=== PATIENT | male | born 1965 | race Caucasian/White ===

== ENCOUNTER → 2024-02-20 16:15 | Outpatient (REF) | payer MEDICARE, SELFPAY | LOC: RAD 16:15 | PROVIDERS: ATTENDING PHYSICIAN Internal Medicine Critical Care Medicine; FAMILY PHYSICIAN Family Medicine | DX: F17.210 Nicotine dependence, cigarettes, uncomplicated (principal) | CPT/HCPCS: 71271 ==

== ENCOUNTER → 2024-04-29 11:06 | Outpatient (REF) | payer MEDICARE, SELFPAY | LOC: RAD 11:06 | PROVIDERS: ATTENDING PHYSICIAN Family Medicine | DX: R10.13 Epigastric pain (principal); R63.4 Abnormal weight loss | CPT/HCPCS: 74177; Q9967 ==

== ENCOUNTER 2024-05-22 14:33 | Outpatient (RCR) | payer MEDICARE, SELFPAY | END 2024-05-22 23:59 | disposition home or self-care (01) | LOC: RST 14:33 | PROVIDERS: ATTENDING PHYSICIAN Psychiatry & Neurology Neurology; FAMILY PHYSICIAN Family Medicine | DX: R41.89 Other symptoms and signs involving cognitive functions and awareness (principal); R41.3 Other amnesia; I69.118 Other symptoms and signs involving cognitive functions following nontraumatic intracerebral hemorrhage; I69.114 Frontal lobe and executive function deficit following nontraumatic intracerebral hemorrhage; I69.111 Memory deficit following nontraumatic intracerebral hemorrhage | CPT/HCPCS: 96125; 97129; 97130 ==

== ENCOUNTER 2024-06-23 11:41 | Outpatient (RCR) | payer MEDICARE, SELFPAY | END 2024-06-23 23:59 | disposition home or self-care (01) | LOC: ROT 11:41 | PROVIDERS: ATTENDING PHYSICIAN Psychiatry & Neurology Neurology; FAMILY PHYSICIAN Family Medicine | DX: R41.89 Other symptoms and signs involving cognitive functions and awareness (principal); R41.3 Other amnesia; R41.841 Cognitive communication deficit; I69.118 Other symptoms and signs involving cognitive functions following nontraumatic intracerebral hemorrhage; I69.114 Frontal lobe and executive function deficit following nontraumatic intracerebral hemorrhage; R41.844 Frontal lobe and executive function deficit; I61.5 Nontraumatic intracerebral hemorrhage, intraventricular; I69.111 Memory deficit following nontraumatic intracerebral hemorrhage | CPT/HCPCS: 97129; 97130 ==

== ENCOUNTER 2024-07-14 13:53 | Outpatient (RCR) | payer MEDICARE, SELFPAY | END 2024-07-14 23:59 | disposition home or self-care (01) | LOC: ROT 13:53 | PROVIDERS: ATTENDING PHYSICIAN Psychiatry & Neurology Neurology; FAMILY PHYSICIAN Family Medicine | DX: R41.89 Other symptoms and signs involving cognitive functions and awareness (principal); R41.3 Other amnesia; R41.841 Cognitive communication deficit; R41.844 Frontal lobe and executive function deficit; I61.5 Nontraumatic intracerebral hemorrhage, intraventricular; I69.118 Other symptoms and signs involving cognitive functions following nontraumatic intracerebral hemorrhage; I69.114 Frontal lobe and executive function deficit following nontraumatic intracerebral hemorrhage; I69.111 Memory deficit following nontraumatic intracerebral hemorrhage | CPT/HCPCS: 97129; 97130 ==

== ENCOUNTER 2024-07-29 13:01 | Outpatient (RCR) | payer MEDICARE, SELFPAY | END 2024-07-29 23:59 | disposition home or self-care (01) | LOC: ROT 13:01 | PROVIDERS: ATTENDING PHYSICIAN Psychiatry & Neurology Neurology; FAMILY PHYSICIAN Family Medicine | DX: R41.89 Other symptoms and signs involving cognitive functions and awareness; R41.3 Other amnesia; I69.311 Memory deficit following cerebral infarction; R41.841 Cognitive communication deficit; R41.844 Frontal lobe and executive function deficit; I69.314 Frontal lobe and executive function deficit following cerebral infarction; I61.5 Nontraumatic intracerebral hemorrhage, intraventricular; I69.118 Other symptoms and signs involving cognitive functions following nontraumatic intracerebral hemorrhage; I69.114 Frontal lobe and executive function deficit following nontraumatic intracerebral hemorrhage; I69.111 Memory deficit following nontraumatic intracerebral hemorrhage | CPT/HCPCS: 97129; 97130 ==

== ENCOUNTER → 2024-11-04 16:21 | Outpatient (REF) | payer MEDICARE, SELFPAY | LOC: DHSLP 16:21 | PROVIDERS: ATTENDING PHYSICIAN Family Medicine; FAMILY PHYSICIAN Family Medicine | DX: G47.19 Other hypersomnia (principal); R06.83 Snoring; R09.02 Hypoxemia | CPT/HCPCS: 95810 ==

== ENCOUNTER 2025-01-12 11:59 | Emergency (ER) | payer MEDICARE, SELFPAY ==
[2025-01-12 12:00] VITALS: BP 181/100
[2025-01-12 12:40] LABS: % Basophils 0.4 % (0-2); % Eosinophils 0.1 % (0-6); % Immature Granulocytes 0.4 % (0-0.5); % Lymphocytes 9.7 % (20.5-51.1); % Monocytes 4.5 % (1.7-9.3); % Neutrophils 84.9 % (42.2-75.2); Absolute Basophils 0.1 10^3/uL (0-0.2); Absolute Immature Granulocytes 0.1 10^3/uL (0-0.05); Absolute Lymphocytes 1.4 10^3/uL (1.2-3.4); Absolute Monocytes 0.6 10^3/uL (0.1-0.6); Hematocrit 51.7 % (39.0-52.0); Hemoglobin 16.8 g/dL (13.0-18.0); Mean Corp Hgb Conc. 32.5 g/dL (33.0-37.0); Mean Corpuscular Hgb 28.7 pg (27.0-31.0); Mean Corpuscular Volume 88.2 fL (80.0-94.0); Mean Platelet Volume 9.9 fL (7.4-10.4); Nucleated Red Blood Cells % 0 % (-); Platelet Count 232 10^3/uL (130-400); Red Blood Cell Count 5.86 10^6/uL (4.70-6.10); Red Cell Dist. Width 15.8 % (11.5-14.5); White Blood Cell Count 14.1 10^3/uL (4.8-10.8)
[2025-01-12 12:45] LABS: ALT (SGPT) 19 U/L (0-50); AST (SGOT) 24 U/L (17-59); Albumin 4.6 g/dl (3.5-5.0); Alkaline Phosphatase 134 U/L (38-126); Blood Urea Nitrogen 27 mg/dl (9-20); Calcium 9.6 mg/dl (8.4-10.2); Carbon Dioxide 21 mmol/L (22-30); Chloride 106 mmol/L (98-107); Glucose 218 mg/dl (70-99); Lipase 317 U/L (23-300); Potassium 4.4 mmol/L (3.5-5.1); Sodium 139 mmol/L (135-145); Total Protein 7.6 g/dl (6.3-8.2); eGFR > 60.00
[2025-01-12 13:02] LABS: Troponin I < 0.012 ng/ml
[2025-01-12] MEDS: ZOFRAN 4 MG IV (14:02)
[2025-01-12] MEDS: NSS 1000 IV (14:02)
[2025-01-12] MEDS: DILAUDID 0.5 MG IV (14:02)
[2025-01-12 14:05] VITALS: BMI 28.5
[2025-01-12 14:06] VITALS: BP 175/89
--- NOTE | 2025-01-12 14:06 | ED.GENMED ---
History of Present Illness
<Dee Webster NP - Last Filed: 01/15/25 22:33>
General
Chief Complaint: Abdominal Symptoms
Source: patient
Exam Limitations: none
Time Seen by Provider: 01/12/25 13:38
Nursing documentation reviewed up to this point in time: agreed with
History of Present Illness
History of Present Illness:
Patient to ED iwth complaint of abdominal pain, n/v. Symptoms started 2 days ago. states symptoms lasted for 24 hours and then resolved but returned again this AM. Denies fever/chills. COmplains of left sided abd pain that radiates to
umbilicus. BRought to ED by spouse for eval
Past History
<Dee Webster NP - Last Filed: 01/15/25 22:33>
Past History
ED Past Medical History: CAD, HTN, Hypercholesterolemia, IDDM and Other (ICH)
ED Past Surgical History: Cardiac
Social History
Tobacco: Smoker
Alcohol: None
Drug: None
Personal: Partner
Living: with family
Family History
Family History: Unable to obtain
Review of Systems
<Dee Webster NP - Last Filed: 01/15/25 22:33>
Review of Systems
Allergies reviewed?: Yes
All Other Systems: ROS reviewed and negative except as documented in HPI and ROS
Constitutional: Reports fatigue
EENT: Reports no symptoms
Respiratory: Reports no symptoms
Cardiac: Reports no symptoms
ABD/GI: Reports abdominal pain, nausea and vomiting
: Reports no symptoms
Musculoskeletal: Reports no symptoms
Skin: Reports no symptoms
Neurological: Reports no symptoms
Psychiatric: Reports no symptoms
Phy Exam
<Dee Webster WINDOWS SYSTEM ADMIN - Last Filed: 01/15/25 22:33>
General Physical Exam
General Presentation: moderate distress
General age: appears stated age
General Skin: warm and dry
General Habitus: normal
General Mental: alert
Cardiovascular Exam
Cardiovascular Exam: regular rate/rhythm and no edema
Pulmonary Exam
Pulmonary Exam: lungs clear and no respiratory distress
Gastrointestinal Exam
Gastrointestinal Exam: normal bowel sounds, soft, no organomegaly, non distended and no cva tenderness
Palpation: left upper quadrant: No tenderness, left lower quadrant: Moderate tenderness, right upper quadrant: No tenderness and right lower quadrant: No tenderness
Musculoskeletal Exam
Musculoskeletal Exam: full ROM and neuro vasc intact
Skin Exam
Skin Exam: normal color, warm/dry and no rash
Psychiatric Exam
Psychiatric Exam: normal mood/affect
Course
<Dee Webster, WINDOWS SYSTEM ADMIN - Last Filed: 01/15/25 22:33>
Orders/Labs/Results
Orders:
Orders
01/12/25 12:05
Electrocardiogram (*1) Urgent
Reason for Study: Chest Pain
01/12/25 12:06
EKG- Treatment ONCE
01/12/25 12:14
Complete Blood Count/With Diff Urgent
Comprehensive Metabolic Panel Urgent
Lipase Urgent
Troponin I Urgent
01/12/25 13:44
0.9% Sodium Chloride 1000 ml [Nss] 1,000 ml IV BOLUS
HYDROmorphone [Dilaudid] 0.5 mg IV NOW STA
Ondansetron Injectable [Zofran] 4 mg IV NOW STA
01/12/25 13:45
CT Abd/pelvis W Iv Cont Urgent
Comment:
Reason For Exam: left abd pain, vomiting,unable to tolerate po
01/12/25 16:11
COVID-19 Antigen Urgent
Source: Nasal Swab
Influenza A+B Rapid Molecular Urgent
FLORY Source: Nasal Swab
Specimen Description:
02/17/25 16:16
Urinalysis Reflex To Culture Urgent
Date Specimen was Collected: 01/12/25
Time Specimen was Collected: 16:13
Urine Microscopic Reflex Cult Urgent
Urine Culture Urgent
FLORY Source: U
Specimen Description:
Date Specimen was Collected: 01/12/25
Time Specimen was Collected: 16:13
01/12/25 17:08
Sulfamethox./Trimethoprim Ds [Bactrim Ds 800 mg/160 mg] 1 tablet PO NOW STA
Abnormal Lab Results
01/12/25 01/12/25
12:14 16:16
WBC 14.1 H 10^3/uL
(4.8-10.8)
MCHC 32.5 L g/dL
(33.0-37.0)
RDW 15.8 H %
(11.5-14.5)
Abs Immat Gran (auto) 0.1 H 10^3/uL
(0-0.05)
Absolute Neuts (auto) 12.0 H 10^3/uL
(1.4-6.5)
Neutrophils % 84.9 H %
(42.2-75.2)
Lymphocytes % 9.7 L %
(20.5-51.1)
Carbon Dioxide 21 L mmol/L
(22-30)
BUN 27 H mg/dl
(9-20)
Glucose 218 H mg/dl
(70-99)
Alkaline Phosphatase 134 H U/L
(38-126)
Lipase 317 H U/L
(23-300)
Urine Ketones 3+ A
(Negative)
Ur Occult Blood Reflex 3+ A
(Negative)
Urine Nitrite (Reflex) Positive A
(Negative)
Leukocyte Esterase Rfl 2+ A
(Negative)
Urine WBC (Reflex) 21-25 A /HPF
(0-5)
Urine Bacteria (Reflex) Many A
(Negative)
Urine Albumin (Reflex) 2+ A
(Neg - Trace)
01/12/25 12:14
01/12/25 12:14
Vital Signs
Initial and Last Documented VS:
Initial Vital Signs
Temp Pulse Resp BP Pulse Ox
97.5 F 108 18 181/100 98
01/12/25 12:00 01/12/25 12:00 01/12/25 12:00 01/12/25 12:00 01/12/25 12:00
Last Documented Vital Signs
Temp Pulse Resp BP Pulse Ox
97.5 F 91 17 175/89 93
01/12/25 12:00 01/12/25 17:46 01/12/25 14:06 01/12/25 14:06 01/12/25 17:46
<Brandee Abel PA-C - Last Filed: 01/15/25 07:27>
Orders/Labs/Results
Orders:
Orders
01/12/25 12:05
Electrocardiogram (*1) Urgent
Reason for Study: Chest Pain
01/12/25 12:06
EKG- Treatment ONCE
01/12/25 12:14
Complete Blood Count/With Diff Urgent
Comprehensive Metabolic Panel Urgent
Lipase Urgent
Troponin I Urgent
01/12/25 13:44
0.9% Sodium Chloride 1000 ml [Nss] 1,000 ml IV BOLUS
HYDROmorphone [Dilaudid] 0.5 mg IV NOW STA
Ondansetron Injectable [Zofran] 4 mg IV NOW STA
01/12/25 13:45
CT Abd/pelvis W Iv Cont Urgent
Comment:
Reason For Exam: left abd pain, vomiting,unable to tolerate po
01/12/25 16:11
COVID-19 Antigen Urgent
Source: Nasal Swab
Influenza A+B Rapid Molecular Urgent
FLORY Source: Nasal Swab
Specimen Description:
01/12/25 16:16
Urinalysis Reflex To Culture Urgent
Date Specimen was Collected: 01/12/25
Time Specimen was Collected: 16:13
Urine Microscopic Reflex Cult Urgent
Urine Culture Urgent
FLORY Source: U
Specimen Description:
Date Specimen was Collected: 01/12/25
Time Specimen was Collected: 16:13
01/12/25 17:08
Sulfamethox./Trimethoprim Ds [Bactrim Ds 800 mg/160 mg] 1 tablet PO NOW STA
Abnormal Lab Results
01/12/25 01/12/25
12:14 16:16
WBC 14.1 H 10^3/uL
(4.8-10.8)
MCHC 32.5 L g/dL
(33.0-37.0)
RDW 15.8 H %
(11.5-14.5)
Abs Immat Gran (auto) 0.1 H 10^3/uL
(0-0.05)
Absolute Neuts (auto) 12.0 H 10^3/uL
(1.4-6.5)
Neutrophils % 84.9 H %
(42.2-75.2)
Lymphocytes % 9.7 L %
(20.5-51.1)
Carbon Dioxide 21 L mmol/L
(22-30)
BUN 27 H mg/dl
(9-20)
Glucose 218 H mg/dl
(70-99)
Alkaline Phosphatase 134 H U/L
(38-126)
Lipase 317 H U/L
(23-300)
Urine Ketones 3+ A
(Negative)
Ur Occult Blood Reflex 3+ A
(Negative)
Urine Nitrite (Reflex) Positive A
(Negative)
Leukocyte Esterase Rfl 2+ A
(Negative)
Urine WBC (Reflex) 21-25 A /HPF
(0-5)
Urine Bacteria (Reflex) Many A
(Negative)
Urine Albumin (Reflex) 2+ A
(Neg - Trace)
01/12/25 12:14
01/12/25 12:14
Vital Signs
Initial and Last Documented VS:
Initial Vital Signs
Temp Pulse Resp BP Pulse Ox
97.5 F 108 18 181/100 98
01/12/25 12:00 01/12/25 12:00 01/12/25 12:00 01/12/25 12:00 01/12/25 12:00
Last Documented Vital Signs
Temp Pulse Resp BP Pulse Ox
97.5 F 91 17 175/89 93
01/12/25 12:00 01/12/25 17:46 01/12/25 14:06 01/12/25 14:06 01/12/25 17:46
<Brandee Abel PA-C - Last Filed: 01/15/25 07:27>
*Critical Care Note
Total Time (30-74mins, 75-104mins- exclusive of procedures): Not Applicable
<Brandee Abel PA-C - Last Filed: 01/15/25 07:27>
Update Note
Update Note:
01/15/2025 0724 AM urine positive for E. coli, given Bactrim, sensitive, no treatment change required
ED Attending Note
<Dee Webster NP - Last Filed: 01/15/25 22:33>
-
Portions of this chart may have been created with voice recognition software.� Occasional wrong word or��sound alike� substitutions may have occurred due to the inherent limitations of voice recognition software.
Discharge Plan
Departure
Patient Disposition: Home (Routine Discharge)
Date of Disposition: 01/12/25
Time of Disposition: 17:11
Patient with high blood pressure during this ER visit?: No
Condition: Good
Covid-19: Not Applicable
Discharge Problem:
UTI (urinary tract infection), Nausea & vomiting
Instructions: Urinary tract infections in adults, Dehydration, Adult (DC)
Prescriptions:
New
sulfamethoxazole-trimethoprim [Bactrim DS] 800-160 mg tablet
1 tab PO BID Qty: 14 0RF
ondansetron 4 mg tablet,disintegrating
4 mg PO TID PRN (Reason: nausea and vomiting) 3 Days Qty: 10 0RF
No Action
aspirin 81 mg Tablet,Delayed Release (Dr/Ec)
81 mg PO DAILY
albuterol sulfate 90 mcg/actuation Hfa Aerosol Inhaler
1 puff INHALATION R HS
albuterol sulfate 90 mcg/actuation Hfa Aerosol Inhaler
1 puff INHALATION R HSPRN PRN (Reason: sob)
Rx Instructions:
09/17/2023, patient uses this medication in addition to the other albuterol HFA at bedtime.
colestipol 1 gram Tablet
1 g PO DAILY@1600
coenzyme Q10 [Co Q-10] 100 mg Capsule
100 mg PO HS
Januvia 50 mg Tablet
50 mg PO DAILY
Men 50 Plus Multivitamin 871-37-136-300 mcg Tablet
1 tab PO DAILY
guaifenesin [Mucinex] 600 mg Tablet Extended Release 12hr
600 mg PO BID
fluticasone furoate-vilanterol [Breo Ellipta] 200-25 mcg/dose Blister With Device
1 inh INHALATION R DAILY
atorvastatin 80 MG tablet
80 mg PO HS
metformin 1,000 MG tablet
1,000 mg PO BID@0800,1700
metoprolol tartrate 25 MG tablet
25 mg PO BID
nicotine 21 mg/24 hr Patch 24 Hour
21 mg transdermal DAILY Qty: 30 0RF
senna 8.6 mg capsule
17.2 mg PO HS Qty: 60 0RF
insulin asp prt-insulin aspart [Novolog Mix 70-30FlexPen U-100] 100 unit/mL (70-30) Insulin Pen
20 unit SC BID Qty: 0 0RF
cefdinir 300 mg capsule
300 mg PO BID Qty: 14 0RF
Linzess 290 mcg Capsule
290 mcg Q3D
fluticasone furoate-vilanterol [Breo Ellipta] 200-25 mcg/dose Blister With Device
1 ea INHALATION DAILY
Referrals:
Estrella Kaye MD [Family Provider] - Follow up in 2-3 days
Activity Restrictions/Additional Instructions:
Return to the emergency department immediately for any changes in/worsening of your symptoms.
Interventions
Interventions:
*Risk Screen - Suicide Last Done: 01/12/25 14:06
*General Assessment Last Done: 01/12/25 14:06
*Neglect/Abuse Screening Last Done: 01/12/25 14:06
ED- Fall Risk Assessment Last Done: 01/12/25 14:10
*ED COVID-19 Vaccine History Last Done: 01/12/25 14:06
*Nursing Disposition Last Done: 01/12/25 17:47
BN-Tdwogo-Flarhfzgni Assessment Last Done: 01/12/25 14:10
Discharge Date and Time
Discharge Date/Time: 01/12/25 17:47
Print Language: [place]
[2025-01-12 16:38] LABS: Urine Albumin 2+ (Neg - Trace); Urine Bilirubin Negative (Negative); Urine Character Clear (Clear); Urine Color Yellow; Urine Glucose Negative (Negative); Urine Ketone 3+ (Negative); Urine Leukocyte 2+ (Negative); Urine Nitrite Positive (Negative); Urine Occult Blood 3+ (Negative); Urine Specific Gravity 1.015 (<1.030); Urine Urobilinogen Negative (Neg - 1+)
[2025-01-12 16:44] LABS: Urine Bacteria Many (Negative); Urine Red Blood Cell 0-2 /HPF (0-2); Urine White Cell 21-25 /HPF (0-5)
[2025-01-12 16:55] LABS: COVID-19 Antigen Negative (Negative)
[2025-01-12] MEDS: BACTRIM DS 800 MG/160 MG 1 TABLET PO (17:20)
== END 2025-01-12 17:47 | disposition home or self-care (01) ==
LOC: EMR 11:59
PROVIDERS: Emergency Medicine; Nurse Practitioner; EMERGENCY PHYSICIAN Emergency Medicine; FAMILY PHYSICIAN Family Medicine
DX: N39.0 Urinary tract infection, site not specified (principal); R11.2 Nausea with vomiting, unspecified; Z11.52 Encounter for screening for COVID-19; F17.200 Nicotine dependence, unspecified, uncomplicated
CPT/HCPCS: 99285; 96374; 96375; 96361; 74177; 80053; 81003; 81015; 83690; 84484; 85025; 87077; 87086; 87186; 87502; 87811; 93005; Q9967

== ENCOUNTER → 2025-02-10 14:11 | Outpatient (REF) | payer MEDICARE, SELFPAY | LOC: HWRAD 14:11 | PROVIDERS: ATTENDING PHYSICIAN Family Medicine | DX: R22.0 Localized swelling, mass and lump, head (principal) | CPT/HCPCS: 70480 ==

== ENCOUNTER → 2025-07-13 12:54 | Outpatient (REF) | payer MEDICARE, SELFPAY | LOC: HWRAD 12:54 | PROVIDERS: ATTENDING PHYSICIAN Internal Medicine Critical Care Medicine | DX: F17.210 Nicotine dependence, cigarettes, uncomplicated (principal) | CPT/HCPCS: 71271 ==

== ENCOUNTER 2025-08-05 14:17 | Emergency (ER) | payer MEDICARE, SELFPAY ==
[2025-08-05 14:18] VITALS: BP 140/104
[2025-08-05 14:39] VITALS: BMI 27.0
[2025-08-05 15:03] LABS: Hematocrit 50.9 % (39.0-52.0); Hemoglobin 17.3 g/dL (13.0-18.0); Mean Corp Hgb Conc. 34.0 g/dL (33.0-37.0); Mean Corpuscular Volume 86.4 fL (80.0-94.0); Nucleated Red Blood Cells % 0 % (-); Platelet Count 198 10^3/uL (130-400); Red Cell Dist. Width 16.0 % (11.5-14.5)
[2025-08-05 15:20] LABS: ALT (SGPT) 20 U/L (0-50); AST (SGOT) 26 U/L (17-59); Albumin 5.0 g/dl (3.5-5.0); Alkaline Phosphatase 119 U/L (38-126); Blood Urea Nitrogen 31 mg/dl (9-20); Calcium 9.9 mg/dl (8.4-10.2); Carbon Dioxide 20 mmol/L (22-30); Chloride 109 mmol/L (98-107); Estimated Creatinine Clearance 90 ml/min; Glucose 202 mg/dl (70-99); Lipase 257 U/L (23-300); Potassium 4.4 mmol/L (3.5-5.1); Sodium 141 mmol/L (135-145); Total Protein 8.2 g/dl (6.3-8.2); eGFR > 60.00
[2025-08-05] MEDS: ZOFRAN 4 MG IV (15:26)
[2025-08-05] MEDS: NSS 1000 IV (15:27)
[2025-08-05 16:00] VITALS: BP 176/99
--- NOTE | 2025-08-05 16:45 | ED.GENMED ---
History of Present Illness
General
Chief Complaint: Abdominal Symptoms
Time Seen by Provider: 08/05/25 14:29
History of Present Illness
History of Present Illness:
59-year-old male with history of TBI status post ruptured intracranial aneurysm, [place], hypertension, hyperlipidemia, and insulin-dependent diabetes presents to the emergency department for evaluation of intractable vomiting since yesterday. Sister
informs me that he presented similarly with his STEMI, a bowel impaction, and a urinary tract infection. Patient denies any abdominal pain, states simply that he is thirsty. No reported fevers, he does endorse diarrhea however
Past History
Past History
ED Past Medical History: CAD, HTN, Hypercholesterolemia, IDDM and Other (ICH)
ED Past Surgical History: Cardiac
Social History
Tobacco: Smoker
Alcohol: None
Drug: None
Personal: Partner
Living: with family
Family History
Family History: Unable to obtain
Review of Systems
Review of Systems
Allergies reviewed?: Yes
All Other Systems: ROS reviewed and negative except as documented in HPI and ROS
Phy Exam
Physical Exam
Physical Exam:
GEN: Ill-appearing, actively retching
HEENT: Oral mucosa moist, no scleral icterus
Cardiac: Regular rate
Lung: No respiratory distress, no tachypnea
Abdomen: Soft, grossly nontender
MSK: No gross deformity or injuries
Skin: Good color, no pallor or jaundice, no rashes
Neuro: AO x3, moves all extremities freely
Psych: Calm, cooperative
Course
Orders/Labs/Results
Orders:
Orders
08/05/25 14:18
EKG [Electrocardiogram (*1)] Urgent
Reason for Study: CAD
EKG- Treatment ONCE
08/05/25 14:35
0.9% Sodium Chloride 1000 ml [Nss] 1,000 ml IV BOLUS
Ondansetron Injectable [Zofran] 4 mg IV NOW STA
08/05/25 14:36
Urinalysis Reflex To Culture Urgent
08/05/25 14:50
Complete Blood Count/With Diff Urgent
Comprehensive Metabolic Panel Urgent
Lipase Urgent
Abnormal Lab Results
08/05/25
14:50
WBC 12.0 H 10^3/uL
(4.8-10.8)
RDW 16.0 H %
(11.5-14.5)
Absolute Neuts (auto) 10.7 H 10^3/uL
(1.4-6.5)
Absolute Lymphs (auto) 1.0 L 10^3/uL
(1.2-3.4)
Neutrophils % 88.7 H %
(42.2-75.2)
Lymphocytes % 8.1 L %
(20.5-51.1)
Chloride 109 H mmol/L
(98-107)
Carbon Dioxide 20 L mmol/L
(22-30)
BUN 31 H mg/dl
(9-20)
Glucose 202 H mg/dl
(70-99)
08/05/25 14:50
08/05/25 14:50
Vital Signs
Initial and Last Documented VS:
Initial Vital Signs
Temp Pulse Resp BP Pulse Ox
98.8 F 112 16 140/104 98
08/05/25 14:18 08/05/25 14:18 08/05/25 14:18 08/05/25 14:18 08/05/25 14:18
Last Documented Vital Signs
Temp Pulse Resp BP Pulse Ox
98.8 F 96 20 140/104 98
08/05/25 14:18 08/05/25 15:45 08/05/25 15:31 08/05/25 14:18 08/05/25 15:45
Comment
Comment:
EKG independently interpreted by me shows normal sinus rhythm at a rate of 97, slightly prolonged QT interval, no ischemic changes
*Pulse Oximetry
SaO2: 98
Oxygen Mode of Delivery: Room air
ED Attending Note
-
Portions of this chart may have been created with voice recognition software.� Occasional wrong word or��sound alike� substitutions may have occurred due to the inherent limitations of voice recognition software.
Discharge Plan
Departure
Prescriptions:
No Action
aspirin 81 mg Tablet,Delayed Release (Dr/Ec)
81 mg PO DAILY
albuterol sulfate 90 mcg/actuation Hfa Aerosol Inhaler
1 puff INHALATION R HS
albuterol sulfate 90 mcg/actuation Hfa Aerosol Inhaler
1 puff INHALATION R HSPRN PRN (Reason: sob)
Rx Instructions:
09/17/2023, patient uses this medication in addition to the other albuterol HFA at bedtime.
colestipol 1 gram Tablet
1 g PO DAILY@1600
coenzyme Q10 [Co Q-10] 100 mg Capsule
100 mg PO HS
Januvia 50 mg Tablet
50 mg PO DAILY
Men 50 Plus Multivitamin 145-32-748-300 mcg Tablet
1 tab PO DAILY
guaifenesin [Mucinex] 600 mg Tablet Extended Release 12hr
600 mg PO BID
fluticasone furoate-vilanterol [Breo Ellipta] 200-25 mcg/dose Blister With Device
1 inh INHALATION R DAILY
atorvastatin 80 MG tablet
80 mg PO HS
metformin 1,000 MG tablet
1,000 mg PO BID@0800,1700
metoprolol tartrate 25 MG tablet
25 mg PO BID
nicotine 21 mg/24 hr Patch 24 Hour
21 mg transdermal DAILY Qty: 30 0RF
senna 8.6 mg capsule
17.2 mg PO HS Qty: 60 0RF
insulin asp prt-insulin aspart [Novolog Mix 70-30FlexPen U-100] 100 unit/mL (70-30) Insulin Pen
20 unit SC BID Qty: 0 0RF
cefdinir 300 mg capsule
300 mg PO BID Qty: 14 0RF
Linzess 290 mcg Capsule
290 mcg Q3D
fluticasone furoate-vilanterol [Breo Ellipta] 200-25 mcg/dose Blister With Device
1 ea INHALATION DAILY
sulfamethoxazole-trimethoprim [Bactrim DS] 800-160 mg tablet
1 tab PO BID Qty: 14 0RF
ondansetron 4 mg tablet,disintegrating
4 mg PO TID PRN (Reason: nausea and vomiting) 3 Days Qty: 10 0RF
Referrals:
Estrella Kaye MD [Family Provider, Family Practice]
Interventions
Interventions:
*Risk Screen - Suicide Last Done: 08/05/25 14:39
*General Assessment Last Done: 08/05/25 14:39
*ED- Fall Risk Assessment Last Done: 08/05/25 14:39
*ED COVID-19 Vaccine History Last Done: 08/05/25 14:39
RY-Qmnadf-Qeoqpaozmp Assessment Last Done: 08/05/25 14:39
Discharge Date and Time
Print Language: [place]
[2025-08-05 17:00] VITALS: BP 164/75
[2025-08-05] MEDS: DILAUDID 0.25 MG IV (17:09)
[2025-08-05 18:36] VITALS: BP 177/94
[2025-08-05 19:00] VITALS: BP 173/101
[2025-08-05 19:31] LABS: Urine Character Clear (Clear)
[2025-08-05 19:51] LABS: Urine Red Blood Cell 16-20 /HPF (0-2); Urine White Cell 30-40 /HPF (0-5)
[2025-08-05 20:00] VITALS: BP 175/92
[2025-08-05] MEDS: KEFLEX 500 MG PO (20:12)
== END 2025-08-05 20:45 | disposition home or self-care (01) ==
LOC: EMR 14:17
PROVIDERS: Physician Assistant; EMERGENCY PHYSICIAN Emergency Medicine; FAMILY PHYSICIAN Family Medicine
DX: N39.0 Urinary tract infection, site not specified (principal); E10.9 Type 1 diabetes mellitus without complications; I25.10 Atherosclerotic heart disease of native coronary artery without angina pectoris; I10 Essential (primary) hypertension; E78.00 Pure hypercholesterolemia, unspecified; I25.2 Old myocardial infarction; F17.200 Nicotine dependence, unspecified, uncomplicated; Z79.82 Long term (current) use of aspirin; Z79.84 Long term (current) use of oral hypoglycemic drugs; Z79.4 Long term (current) use of insulin; Z87.820 Personal history of traumatic brain injury
CPT/HCPCS: 99284; 96374; 96375; 96361; 74177; 80053; 81003; 81015; 83690; 85025; 87086; 93005; Q9967